=== PATIENT | male | born 1980 ===

== ENCOUNTER 2017-08-17 18:16 | Emergency (ER) | payer OTHER ==
[2017-08-17 18:27] VITALS: BP 146/85; PULSE 65; RESP 18; TEMP 97.5; O2SAT 96
--- NOTE | 2017-08-17 20:01 | C.PDOC ---
History Of Present Illness 36 y/o male presents to the ER complaining of right ear pain which has been present for the past 3 days. Patient denies having any drainage from the ear. Patient reports that he feels pain when he is lying on his right side. He denies having headache, fever, chills, sore throat, and URI symptoms. Time Seen by Provider: 08/17/17 19:31 Chief Complaint (Nursing): ENT Problem History Per: Patient History/Exam Limitations: None Onset/Duration Of Symptoms: Days Current Symptoms Are (Timing): Still Present Severity: Moderate Past Medical History Reviewed: Historical Data, Nursing Documentation, Vital Signs Vital Signs: Last Vital Signs Temp 97.5 F L 08/17/17 18:24 Pulse 65 08/17/17 18:24 Resp 18 08/17/17 18:24 BP 146/85 08/17/17 18:24 Pulse Ox 96 08/17/17 21:17 - Medical History PMH: No Chronic Diseases Surgical History: Appendectomy Family History: States: No Known Family Hx - Social History Hx Alcohol Use: Yes Hx Substance Use: No - Immunization History Hx Tetanus Toxoid Vaccination: No Hx Influenza Vaccination: No Hx Pneumococcal Vaccination: No Review Of Systems Constitutional: Negative for: Fever, Chills ENT: Positive for: Ear Pain (right ear pain). Negative for: Throat Pain Neurological: Negative for: Headache Physical Exam - Physical Exam Appears: Non-toxic, No Acute Distress Skin: Normal Color, Warm Head: Atraumatic, Normacephalic, No Swelling Eye(s): bilateral: Normal Inspection, PERRL Ear(s): Left: Normal, Right: Other (tragal tenderness, mild erythema in ear canal , no TM bulging) Nose: Normal Throat: Normal, No Erythema, No Exudate Neck: No Midline Cervical Tenderness, Supple, No Other (swelling) Lymphatic: No Adenopathy Chest: Symmetrical Cardiovascular: Rhythm Regular Respiratory: Normal Breath Sounds, No Rales, No Rhonchi, No Wheezing Neurological/Psych: Oriented x3 ED Course And Treatment O2 Sat by Pulse Oximetry: 96 (RA) Pulse Ox Interpretation: Normal Progress Note: Patient given Motrin PO. Patient discharged and told to follow up with PMD or ENT. Reassessment Condition: Improved Disposition Counseled Patient/Family Regarding: Diagnosis, Need For Followup, Rx Given - Disposition Referrals: Georges Beach MD [Staff Provider] - Disposition: HOME/ ROUTINE Disposition Time: 19:52 Condition: STABLE Additional Instructions: Take meds as directed Follow up with PMD or ENT Return to ER if worse Prescriptions: Ibuprofen [Motrin Tab] 800 mg PO QID #20 tab Neomycin/Polymyxin/Hydrocortis [Cortisporin Otic Susp] 3 drop TOP TID #1 bottle Instructions: Outer Ear Infection (DC) Forms: [facility] ([place]) - Clinical Impression Clinical Impression: Otitis externa - PA / [employer]BI[employer] APPLICATION DEVELOPMENT LEAD / Resident Statement MD/DO has reviewed & agrees with the documentation as recorded. - Scribe Statement The provider has reviewed the documentation as recorded by the Eric Simon Provider Attestation All medical record entries made by the Daniloibalex were at my direction and personally dictated by me. I have reviewed the chart and agree that the record accurately reflects my personal performance of the history, physical exam, medical decision making, and the department course for this patient. I have also personally directed, reviewed, and agree with the discharge instructions and disposition.
== END 2017-08-17 20:18 | disposition home or self-care (01) ==
LOC: C.ER 18:16
DX: H60.91 Unspecified otitis externa, right ear (principal)